=== PATIENT | female | born 1990 | race Caucasian/White ===

== ENCOUNTER 2019-10-30 13:34 | Emergency (ER) | payer OTHER ==
[~2019-10-30] VITALS: Ht 167.6 cm; Wt 59.1 kg
[2019-10-30 14:34] LABS: U PREG PATIENT NEGATIVE (NEG)
[2019-10-30 14:37] LABS: BILIRUBIN,URINE NEG (NEG); CLARITY,URINE HAZY; COLOR,URINE STRAW; GLUCOSE,URINE NEG (NEG); NITRITE,URINE NEG (NEG); RBC,URINE 0 /HPF (0-2); UROBILINOGEN,URINE 0.2 mg/dL (0.2 mg/dL)
[2019-10-30 14:38] LABS: BACTERIA,URINE MOD /HPF (0-FEW); SQUAMOUS EPITHELIAL CELL,UR MANY /LPF
[2019-10-30 14:48] LABS: CALCIUM 9.1 mg/dL (8.5-10.1); CREATININE 0.8 mg/dL (0.6-1.0); GFR 84.2; POTASSIUM 4.3 mmol/L (3.5-5.1)
[2019-10-30 14:54] LABS: ALBUMIN 3.9 g/dL (3.4-5.0); ALBUMIN/GLOBULIN RATIO 1.1 (1.0-1.7); TOTAL BILIRUBIN 0.4 mg/dL (0.2-1.0); TOTAL PROTEIN 7.3 g/dL (6.4-8.2)
[2019-10-30 14:58] LABS: BASO % 0 % (0-3); EOS # 0.2 x10^3/uL (0.0-0.7); EOS % 3 % (0-3); HEMATOCRIT 36.4 % (36.0-47.0); HEMOGLOBIN 12.1 g/dL (12.0-15.5); LYMPH # 2.9 x10^3/uL (1.0-4.8); LYMPH % 38 % (24-48); MEAN CORPUSCULAR HEMOGLOBIN 31 pg (25-35); MEAN CORPUSCULAR HGB CONC 33 g/dL (31-37); MEAN CORPUSCULAR VOLUME 92 fL (79-100); MONO # 0.6 x10^3/uL (0.0-1.1); MONO % 8 % (0-9); NEUT % 51 % (31-73); PLATELET COUNT 216 x10^3/uL (140-400); RED BLOOD COUNT 3.95 x10^6/uL (3.50-5.40); RED CELL DISTRIBUTION WIDTH 14.1 % (11.5-14.5); WHITE BLOOD COUNT 7.8 x10^3/uL (4.0-11.0)
--- NOTE | 2019-10-30 16:03 | RAD ---
Complete abdomen ultrasound HISTORY: Right upper quadrant abdominal pain. COMPARISON: CT abdomen August 16, 2015. FINDINGS: Pancreas, upper abdominal aorta and IVC are normal. Normal liver echogenicity. No liver mass or nodularity documented. Hepatopedal portal vein blood flow. No gallstones or inflammatory changes of the gallbladder. No biliary ductal dilation the common bile duct diameter is 2 mm. Right renal length 10.4 cm . Left renal length 10.9 cm. No renal mass, calculus or hydronephrosis documented. Spleen length 9.0 cm. IMPRESSION: Normal exam. Electronically signed by: Ignacio Rodriguez MD (10/30/2019 4:01 PM) [id number]
[2019-10-30] MEDS ORDERED: KETOROLAC 15 MG/ML VIAL. IVP ONE (16:30)
--- NOTE | 2019-10-30 16:31 | PHYS DOC ---
Past History Past Medical History: No Pertinent History Past Surgical History: Tubal ligation Alcohol Use: Occasionally Drug Use: None General Adult EDM: Chief Complaint: BACK PAIN OR INJURY HPI: HPI: 29-year-old female with past medical history significant for tobacco dependence and tubal ligation 2016, presents the ED with complaints of right upper quadrant nonradiating, burning, abdominal pain pain for the past 2 days with associated right mid thoracic back pain, no trauma or increased physical activity. Patient reports she has not taken anything for the pain. Denies any alcohol or drug use. Last menstrual period was from October 07 through the . States she had a UTI in November 2018 and pyelonephritis when she was a kid. States the pain she experienced with pyelonephritis was much worse than what she is currently experiencing. Review of Systems: Review of Systems: Constitutional: Denies fever or chills Eyes: Denies change in visual acuity HENT: Denies nasal congestion or sore throat Respiratory: Denies cough or shortness of breath Cardiovascular: Denies chest pain or edema GI: Denies abdominal pain, nausea, vomiting, bloody stools or diarrhea : Denies dysuria, materia, radiculopathy Musculoskeletal: Denies back pain or joint pain Integument: Denies rash Neurologic: Denies headache, focal weakness or sensory changes Endocrine: Denies polyuria or polydipsia Lymphatic: Denies swollen glands Psychiatric: Denies depression or anxiety [employer] COURT REPORTER: No vaginal bleeding, abnormal vaginal discharge or odor, dyspareunia Heart Score: Risk Factors: Risk Factors: DM, Current or recent (<one month) smoker, HTN, HLP, family history of CAD, obesity. Risk Scores: Score 0 - 3: 2.5% MACE over next 6 weeks - Discharge Home Score 4 - 6: 20.3% MACE over next 6 weeks - Admit for Clinical Observation Score 7 - 10: 72.7% MACE over next 6 weeks - Early Invasive Strategies Allergies: Allergies: Allergies Coded Allergies Type Severity Reaction Last Updated Verified No Known Drug Allergies 10/05/14 No Physical Exam: PE: Constitutional: Well developed, well nourished, no acute distress, non-toxic ap pearance. [] HENT: Normocephalic, atraumatic, Eyes: EOMI, conjunctiva normal, no discharge. [] Neck: Normal range of motion, supple, Cardiovascular:Heart rate regular rhythm, no murmur [] Lungs & Thorax: Bilateral breath sounds clear to auscultation [] Abdomen: Bowel sounds normal, soft, cannot worsen pain, no murphys signs, pain is over right anterior lower ribs, midaxillary thoracic and posterior ribs, no epigastric ttp, no McBurney sign no Rovsing sign, no masses, no pulsatile masses. [] Skin: Warm, dry, no erythema, no rash. [] Back: No tenderness, no CVA tenderness. [] Extremities: No tenderness, no cyanosis, no clubbing, ROM intact, no edema. [] Neurologic: Alert and oriented X 3, normal motor function, normal sensory function, no focal deficits noted. [] Psychologic: Affect normal, judgement normal, mood normal. [] Current Patient Data: Labs: Laboratory Tests Test 10/30/19 13:40 10/30/19 14:23 Urine Collection Type Unknown Urine Color Straw Urine Clarity Hazy Urine pH 5.5 Urine Specific Hutto >=1.030 Urine Protein Neg (NEG-TRACE) Urine Glucose (UA) Neg mg/dL (NEG) Urine Ketones (Stick) Neg mg/dL (NEG) Urine Blood Neg (NEG) Urine Nitrite Neg (NEG) Urine Bilirubin Neg (NEG) Urine Urobilinogen Dipstick 0.2 mg/dL (0.2 mg/dL) Urine Leukocyte Esterase Trace (NEG) Urine RBC 0 /HPF (0-2) Urine WBC 11-20 /HPF (0-4) Urine Squamous Epithelial Cells Many /LPF Urine Bacteria Mod /HPF (0-FEW) Urine Test Negative (NEG) White Blood Count 7.8 x10^3/uL (4.0-11.0) Red Blood Count 3.95 x10^6/uL (3.50-5.40) Hemoglobin 12.1 g/dL (12.0-15.5) Hematocrit 36.4 % (36.0-47.0) Mean Corpuscular Volume 92 fL (79-100) Mean Corpuscular Hemoglobin 31 pg (25-35) Mean Corpuscular Hemoglobin Concent 33 g/dL (31-37) Red Cell Distribution Width 14.1 % (11.5-14.5) Platelet Count 216 x10^3/uL (140-400) Neutrophils (%) (Auto) 51 % (31-73) Lymphocytes (%) (Auto) 38 % (24-48) Monocytes (%) (Auto) 8 % (0-9) Eosinophils (%) (Auto) 3 % (0-3) Basophils (%) (Auto) 0 % (0-3) Neutrophils # (Auto) 4.0 x10^3uL (1.8-7.7) Lymphocytes # (Auto) 2.9 x10^3/uL (1.0-4.8) Monocytes # (Auto) 0.6 x10^3/uL (0.0-1.1) Eosinophils # (Auto) 0.2 x10^3/uL (0.0-0.7) Basophils # (Auto) 0.0 x10^3/uL (0.0-0.2) Sodium Level 140 mmol/L (136-145) Potassium Level 4.3 mmol/L (3.5-5.1) Chloride Level 106 mmol/L (98-107) Carbon Dioxide Level 26 mmol/L (21-32) Anion Gap 8 (6-14) Blood Urea Nitrogen 11 mg/dL (7-20) Creatinine 0.8 mg/dL (0.6-1.0) Estimated GFR (Cockcroft-Gault) 84.2 BUN/Creatinine Ratio 14 (6-20) Glucose Level 93 mg/dL (70-99) Calcium Level 9.1 mg/dL (8.5-10.1) Total Bilirubin 0.4 mg/dL (0.2-1.0) Aspartate Amino Transferase (AST) 16 U/L (15-37) Alanine Aminotransferase (ALT) 22 U/L (14-59) Alkaline Phosphatase 62 U/L (46-116) Total Protein 7.3 g/dL (6.4-8.2) Albumin 3.9 g/dL (3.4-5.0) Albumin/Globulin Ratio 1.1 (1.0-1.7) Lipase 60 U/L (73-393) L Vital Signs: Vital Signs Date Time Temp Pulse Resp B/P (MAP) Pulse Ox O2 Delivery O2 Flow Rate FiO2 10/30/19 13:35 98.6 80 16 131/78 (95) 98 Room Air EKG: EKG: [] Radiology/Procedures: Radiology/Procedures: []IMAGING REPORT Signed PATIENT: HOMER KING ACCOUNT: [id number] : 1990 LOCATION: ER AGE: 29 SEX: F EXAM STATUS: REG ER ORD. PHYSICIAN: VIVEK BALBUENA DO REASON: ruq abd pain PROCEDURE: ABDOMEN COMPLETE Complete abdomen ultrasound HISTORY: Right upper quadrant abdominal pain. COMPARISON: CT abdomen August 16, 2015. FINDINGS: Pancreas, upper abdominal aorta and IVC are normal. Normal liver echogenicity. No liver mass or nodularity documented. Hepatopedal portal vein blood flow. No gallstones or inflammatory changes of the gallbladder. No biliary ductal dilation the common bile duct diameter is 2 mm. Right renal length 10.4 cm . Left renal length 10.9 cm. No renal mass, calculus or hydronephrosis documented. Spleen length 9.0 cm. IMPRESSION: Normal exam. Electronically signed by: Alena Rodriguez MD (10/30/2019 4:01 PM) [id number] DICTATED AND SIGNED BY: ALENA RODRIGUEZ MD DATE: 10/30/19 1601 CC: VIVEK STRICKLAND; VIVEK BALBUENA DO ~ Course & Med Decision Making: Course & Med Decision Making Pertinent Labs and Imaging studies reviewed. (See chart for details) Patient very, well-appearing in ED, slightly anxious regarding her pain that cannot be reproduced with a physical exam. Due to patient a CT abdomen pelvis in 2015 with no radiopaque colliculi. Ultrasound imaging shows no evidence of biliary disease, cholelithiasis or hydronephrosis. Labs including lipase are unremarkable. Patient's urinalysis is contaminated but will cover for urinary tract infection. Patient states her pain is mild and tolerable with Toradol. I did offer CT abdomen pelvis but patient states she would prefer to be discharged home and states the pain is not that bad. Could be ascending uti. No pelvic pain. Strict ED return precautions were given for severe abdominal or pelvic pain. Encouraged urgent outpatient follow-up with PMD. Life-threatening processes were considered but are low suspicion at this time, given history and physical exam. Pt was educated on all prescription medications and adverse effects. All patient's questions were answered and pt was stable at time of discharge. Differential includes aortic dissection, aortic aneurysm, acute coronary syndrome, surgical abdomen (appendicitis, cholecystitis, ischemic bowel, magalis ulated hernia, etc), bowel obstruction or volvulus, bladder outlet obstruction, gastrointestinal bleeding, inflammatory bowel disease, peptic ulcer disease, sepsis, diverticular disease, ureterolithiasis, nephrolithiasis, ovarian or testicular torsion, ectopic , vaginal hemorrhage of infection I spoken with the patient and her caregivers. I explained the patient's condi tion, diagnoses and treatment plan based on the information available to me at this time. I have answered the patient and her caregiver's questions and addressed any concerns. The patient and her caregivers have a good understanding of patient's diagnosis, condition and treatment plan as can be expected at this point. Vital signs have been stable. Patient's condition is stable and appropriate for discharge from the emergency department. Patient will pursue further outpatient evaluation with primary care physician or other designated or consulting physician as outlined in the discharge instructions. The patient and/or caregivers are agreeable to this plan of care and follow-up instructions have been explained in detail. The patient and/or caregivers have received these instructions in written form and have expressed an understanding of the discharge instructions. The patient and/or caregivers are aware that any significant change of condition or worsening of symptoms should prompt immediate return to this or the closest emergency department or call to 911. Deisi Disclaimer: Deisi Disclaimer: This electronic medical record was generated, in whole or in part, using a voice recognition dictation system. Departure Departure: Impression: Primary Impression: Abdominal pain Additional Impression: UTI (urinary tract infection) Disposition: HOME/RESIDENCE PRIOR TO ADM Condition: STABLE Referrals: VIVEK STRICKLAND (PCP) Patient Instructions: Abdominal Pain, Dysuria Scripts Phenazopyridine Hcl (PHENAZOPYRIDINE HCL) 200 Mg Tablet 1 TAB PO TID for urinary discomfort for 2 Days, #6 TAB 0 Refills after food Prov: VIVEK BALBUENA DO 10/30/19 Nitrofurantoin Monohyd/M-Cryst (MACROBID 100 MG CAPSULE) 100 Mg Capsule 1 CAP PO BID for uti for 7 Days, #14 CAP 0 Refills Prov: VIVEK BALBUENA DO 10/30/19 Justification of Admission: Justification of Admission: Justification of Admission Dx: N/A VIVEK BALBUENA DO Oct 30, 2019 16:31
[2019-10-30 16:44] VITALS: BP 126/79
[2019-10-30] MEDS ORDERED: IOHEXOL 300 MG/ML 75 ML VIAL. IV ONE (16:45)
[2019-10-30] MEDS ORDERED: KETOROLAC 15 MG/ML VIAL. IM ONE (17:00)
[2019-10-30] MEDS ORDERED: PHEN-444 PO (17:09)
[2019-10-30] MEDS ORDERED: NITR100C62 PO (17:09)
== END 2019-10-30 17:12 | disposition home or self-care (01) ==
LOC: ER 13:34
DX: N39.0 Urinary tract infection, site not specified (principal); Z72.0 Tobacco use; Z98.51 Tubal ligation status
CPT/HCPCS: 36415; 76700; 80053; 81001; 81025; 83690; 85025; 87086; 96372; 99285; J1885

== ENCOUNTER → 2019-11-07 | Outpatient (CLI) | payer OTHER ==
[2019-10-30 16:44] VITALS: BP 126/79
[~2019-11-07] MED LIST: NITR100C62 PO; PHEN-444 PO
--- NOTE | 2019-11-07 15:14 | RAD ---
Study: CR LUMBAR SPINE MIN 4V Indication: Low back pain. Comparison: CT abdomen/pelvis 08/16/2015 Findings: 5 nonrib-bearing lumbar vertebral elements. Straightening of lumbar lordosis. There appears to be mild to potentially moderate disc space narrowing at L5-S1 and trace retrolisthesis of L5 on S1. Vertebral body height is maintained. No pars defect identified on the oblique views. Grossly intact transverse and spinous processes. No advanced facet degeneration. Unremarkable sacrum. Scattered pelvic phleboliths. Impression: Mild to potentially moderate disc space narrowing at L5-S1 and trace retrolisthesis of L5 on S1. Disc space height elsewhere is within normal limits. No readily apparent advanced facet degeneration. Electronically signed by: EDE ARIAS MD (11/07/2019 3:11 PM) [id number]
== END | disposition home or self-care (01) ==
LOC: PMG 11:33
PROVIDERS: ATTEND Physician Assistant Medical
DX: M48.07 Spinal stenosis, lumbosacral region (principal)
CPT/HCPCS: 72110

== ENCOUNTER → 2020-12-05 | Outpatient (CLI) | payer OTHER ==
--- NOTE | 2020-12-05 16:47 | RAD ---
EXAM: LUMBAR SPINE 3 VIEWS. HISTORY: Low back pain, lumbar surgery COMPARISON: None. FINDINGS: There is a mild lumbar levocurvature, within normal limits. Vertebral body heights are main tained, and no fractures are identified. Intervertebral disc heights are maintained. IMPRESSION: 1. No fracture or clear degenerative change. Electronically signed by: Palak Frye MD (12/05/2020 4:44 PM) [id number]
== END ==
LOC: RAD 10:49
PROVIDERS: ATTEND Nurse Practitioner Adult Health
DX: M54.50 Low back pain, unspecified (principal)
CPT/HCPCS: 72100

== ENCOUNTER → 2020-12-20 | Outpatient (CLI) | payer OTHER ==
--- NOTE | 2020-12-20 10:00 | RAD ---
EXAM: Lumbar spine, flexion and extension; lumbar spine, lateral view. HISTORY: Pain COMPARISON: 12/05/2020. FINDINGS: Lateral neutral, flexion and extension views lumbar spine are obtained. There is minimal re trolisthesis of L5 on S1 which does not change between flexion and extension. No abnormal motion is s een. There is disc space narrowing and facet arthropathy at the lumbosacral junction. No fracture is seen. IMPRESSION: 1. Mild disc space narrowing, facet arthropathy and retrolisthesis at the lumbosacral junction. 2. No acute osseous finding or abnormal motion between flexion and extension. Electronically signed by: Carmen Roa MD (12/20/2020 9:57 AM) [id number]
== END ==
LOC: RAD 09:23
PROVIDERS: ATTEND Neurological Surgery
DX: M47.817 Spondylosis without myelopathy or radiculopathy, lumbosacral region (principal); M48.07 Spinal stenosis, lumbosacral region; M54.50 Low back pain, unspecified; M43.10 Spondylolisthesis, site unspecified
CPT/HCPCS: 72020; 72100

== ENCOUNTER 2021-03-10 01:44 | Emergency (ER) | payer OTHER ==
[~2021-03-10] VITALS: Ht 167.6 cm; Wt 59.1 kg
[2021-03-10 01:58] VITALS: BP 128/86
--- NOTE | 2021-03-10 02:28 | PHYS DOC ---
Past History Past Medical History Limited secondary to alcohol intoxication Past Surgical History: Tubal ligation, Other Past Surgical History Limited secondary to alcohol intoxication Alcohol Use: Occasionally Drug Use: None Social History Limited secondary to alcohol intoxication General Adult EDM: Chief Complaint: ALCOHOL INTOXICATION HPI: HPI: 30-year-old female presents via EMS with report of alcohol intoxication. EMS reports they were called by patient's friends at the bar secondary to patient being significantly intoxicated. History of present illness limited secondary to alcohol intoxication. Review of Systems: Review of Systems: Constitutional: Denies fever or chills GI: Denies abdominal pain, nausea, or vomiting Integument: Denies rash Neurologic: Denies headache Review of systems limited secondary to alcohol intoxication Allergies: Allergies: Allergies Coded Allergies Type Severity Reaction Last Updated Verified No Known Drug Allergies 10/05/14 No Physical Exam: PE: Constitutional: Well developed, well nourished, no acute distress, non-toxic appearance HENT: Normocephalic, atraumatic Eyes: PERRL, EOMI, conjunctiva mildly injected, no discharge, horizontal nystagmus noted Neck: Normal range of motion, no tenderness, supple Lungs & Thorax: No respiratory distress, equal chest rise and fall Abdomen: Soft, no tenderness Skin: Warm, dry, no erythema, no rash Extremities: No tenderness, ROM intact, no edema Neurologic: Alert and oriented X 3, no focal deficits noted, walks with steady gait Psychologic: Intoxicated, judgment abnormal Current Patient Data: Vital Signs: Vital Signs Date Time Temp Pulse Resp B/P (MAP) Pulse Ox O2 Delivery O2 Flow Rate FiO2 03/10/21 01:58 97.6 103 18 128/86 (100) 100 Room Air EKG: EKG: [] Radiology/Procedures: Radiology/Procedures: [] Heart Score: C/O Chest Pain: N/A Course & Med Decision Making: Course & Med Decision Making Patient presents via EMS with report of alcohol intoxication. Upon arrival patient does appear intoxicated however is A&O x3. Patient is able to ambulate with a steady gait. Patient's spouse called and requested to bring patient home. Patient currently appears clinically sober and can be discharged safely home under evaluation of spouse. Patient stable for discharge with outpatient follow-up with PCP. Discussed findings and plan with patient, who acknowledges understanding and agreement. Deisi Disclaimer: Deisi Disclaimer: This electronic medical record was generated, in whole or in part, using a voice recognition dictation system. Departure Departure: Impression: Primary Impression: Alcohol intoxication Qualified Codes: F10.920 - Alcohol use, unspecified with intoxication, uncomplicated Disposition: 01 HOME / SELF CARE / HOMELESS Condition: STABLE Referrals: VIVEK STRICKLAND (PCP) Patient Instructions: Alcohol Intoxication, [id number] HENNY WOODWARD DO Mar 10, 2021 02:28
== END 2021-03-10 02:40 | disposition home or self-care (01) ==
LOC: ER 01:44
DX: F10.229 Alcohol dependence with intoxication, unspecified (principal); Y90.9 Presence of alcohol in blood, level not specified
CPT/HCPCS: 99283

== ENCOUNTER 2021-07-20 16:02 | Emergency (ER) | payer OTHER ==
[~2021-07-20] VITALS: Ht 167.6 cm; Wt 61.9 kg
[2021-07-20] MEDS ORDERED: IV NORMAL SALINE 1,000ML 1,000 ML IV ONE ×2 (16:30→17:45)
[2021-07-20] MEDS ORDERED: diphenhydrAMINE 50 MG/ML VIAL IVP ONE (16:30)
[2021-07-20] MEDS ORDERED: PROCHLORPERAZINE 10 MG/2 ML VIAL. IV ONE (16:30)
--- NOTE | 2021-07-20 16:40 | PHYS DOC ---
Past History Past Surgical History: Tubal ligation, Other Additional Past Surgical Histo: LUMBAR (KIRILL ESTES MD) Additional Smoking Information: VAPES Alcohol Use: Occasionally Drug Use: None (KIRILL ESTES MD) General Adult EDM: Chief Complaint: POST-OP PROBLEM HPI: HPI: Patient is a 31-year-old female coming in for headache for the past 2 days. Patient states that she was seen by neurosurgeon and had a myelogram 2 days ago. Patient states that the headache started in the left side of her neck and the back of her head. Patient notes that she has had some nausea and vomited 1 time just prior to arrival. Also endorsing photophobia. Denies any fevers or chills. Patient states she spoke with a nurse from the neurosurgeons office yesterday and was told to hydrate. Story of migraine (KIRILL ESTES MD) Review of Systems: Review of Systems: All other systems within normal limits except for as noted in the HPI (KIRILL ESTES MD) Allergies: Allergies: Allergies Coded Allergies Type Severity Reaction Last Updated Verified No Known Drug Allergies 10/05/14 No (KIRILL ESTES MD) Physical Exam: PE: Constitutional: Well developed, well nourished, no acute distress, non-toxic appearance. [] HENT: Normocephalic, atraumatic, bilateral external ears normal, nose normal. [] Eyes: PERRLA, conjunctiva normal, no discharge. [] Neck: No rigidity, supple, no stridor. posterior neck pain[] Cardiovascular: Regular rate and rhythm, brisk cap refill [] Lungs & Thorax: Non labored symmetric respirations, no tachypnea or respiratory distress [] Abdomen: Soft, nondistended. Skin: Warm, dry, no erythema, no rash. [] Back: Unremarkable, 2 Band-Aids over lumbar spine, no surrounding erythema. Extremities: No deformities, range of motion grossly intact, no lower extremity edema [] Neurologic: Alert and oriented X 3, no focal deficits noted. [] Psychologic: Affect normal, judgement normal, mood normal. [] (KIRILL ESTES MD) Current Patient Data: Vital Signs: Vital Signs Date Time Temp Pulse Resp B/P (MAP) Pulse Ox O2 Delivery O2 Flow Rate FiO2 5/28/22 16:10 97.5 90 20 119/65 (83) 98 Room Air (KIRILL ESTES MD) EKG: EKG: [] (KIRILL ESTES MD) Radiology/Procedures: Radiology/Procedures: [] (KIRILL ESTES MD) Heart Score: C/O Chest Pain: No Risk Factors: Risk Factors: DM, Current or recent (<one month) smoker, HTN, HLP, family history of CAD, obesity. Risk Scores: Score 0 - 3: 2.5% MACE over next 6 weeks - Discharge Home Score 4 - 6: 20.3% MACE over next 6 weeks - Admit for Clinical Observation Score 7 - 10: 72.7% MACE over next 6 weeks - Early Invasive Strategies (KIRILL ESTES MD) Course & Med Decision Making: Course & Med Decision Making Pertinent Labs and Imaging studies reviewed. (See chart for details) Consult placed to Dr. Parker's nurse practitioner Caitlyn. She states she talked to the patient yesterday and advised her to rest. She is not concerned the patient symptoms about meningitis or encephalitis is not requesting any lumbar puncture. Caitlyn is concerned about the loss of spinal fluid due to having 2 punctures and is recommending post LP headache treatment with reev aluation. May possibly have to send to [place] if symptoms not resolved for a blood patch by anesthesia. At this facility would only have 60 mg total of IV caffeine, will add that to the saline bag for the migraine cocktail. Patient pending medications and reevaluation at shift change. [] (KIRILL ESTES MD) Course & Med Decision Making Patient care handed off to me at checkout pending reevaluation. On reevaluation, patient awake alert and oriented no acute distress with resolution of symptoms wanting to go home. Discussed findings with patient. Advised to follow-up with her primary care physician and neurosurgeon soon as she can update on ED visit and set up appropriate follow-ups as needed. Gave return precautions to the ED. Family grateful, verbalized understanding and agreed with plan of discharge. (TANIKA CAPPS MD) Dragon Disclaimer: Dragon Disclaimer: This electronic medical record was generated, in whole or in part, using a voice recognition dictation system. (KIRILL ESTES MD) Departure Departure: Impression: Primary Impression: Headache Disposition: HOME / SELF CARE / HOMELESS Condition: STABLE Referrals: VIVEK STRICKLAND (PCP) Patient Instructions: Lumbar Laminectomy, Care After, Migraine Headache Additional Instructions: Thank you for coming into the emergency department tonight and allowing us to take care of you. Please read the attached information carefully to go over things we discussed. Please continue to stay well-hydrated and use Tylenol, ibuprofen and Benadryl at home. Please follow-up with your primary care physician and your neurosurgeon as soon as you can to update on your ED visit. Please come back with new or concerning symptoms as discussed. KIRILL ESTES MD July 20, 2021 16:40 TANIKA CAPPS MD July 20, 2021 19:10
[2021-07-20 17:20] LABS: CLARITY,URINE CLOUDY; COLOR,URINE BROWN; GLUCOSE,URINE NEG (NEG)
[2021-07-20 17:21] LABS: BACTERIA,URINE MOD /HPF (0-FEW); NITRITE,URINE NEG (NEG); RBC,URINE TNTC /HPF (0-2); SQUAMOUS EPITHELIAL CELL,UR MANY /LPF; UROBILINOGEN,URINE 0.2 mg/dL (0.2 mg/dL)
[2021-07-20] MEDS ORDERED: CAFFEINE CITRATED 60 MG/3 ML IV ONE (17:30)
[2021-07-20 17:37] LABS: CREATININE 0.7 mg/dL (0.6-1.0); POTASSIUM 3.5 mmol/L (3.5-5.1)
[2021-07-20 17:39] LABS: BASO % 0 % (0-3); EOS # 0.1 x10^3/uL (0.0-0.7); EOS % 1 % (0-3); HEMATOCRIT 36.8 % (36.0-47.0); HEMOGLOBIN 12.7 g/dL (12.0-15.5); LYMPH # 1.7 x10^3/uL (1.0-4.8); LYMPH % 22 % (24-48); MEAN CORPUSCULAR HEMOGLOBIN 32 pg (25-35); MEAN CORPUSCULAR HGB CONC 35 g/dL (31-37); MEAN CORPUSCULAR VOLUME 92 fL (79-100); MONO # 0.4 x10^3/uL (0.0-1.1); MONO % 6 % (0-9); NEUT # 5.4 x10^3uL (1.8-7.7); NEUT % 71 % (31-73); PLATELET COUNT 234 x10^3/uL (140-400); RED BLOOD COUNT 4.01 x10^6/uL (3.50-5.40); RED CELL DISTRIBUTION WIDTH 12.6 % (11.5-14.5); WHITE BLOOD COUNT 7.5 x10^3/uL (4.0-11.0)
[2021-07-20 17:43] LABS: ALBUMIN 4.1 g/dL (3.4-5.0); ALBUMIN/GLOBULIN RATIO 1.2 (1.0-1.7); MAGNESIUM 1.9 mg/dL (1.8-2.4); TOTAL BILIRUBIN 0.7 mg/dL (0.2-1.0); TOTAL PROTEIN 7.6 g/dL (6.4-8.2)
[2021-07-20] MEDS ORDERED: IV NORMAL SALINE 500ML 500 ML IV ONE (17:45)
--- NOTE | 2021-07-20 18:28 | RAD ---
CT HEAD AND C-SPINE WO History: Left headache, post myelogram. Comparison: None. Technique: Noncontrast CT of the head and cervical spine. Findings: CT HEAD: There is no evidence for intracranial mass or hemorrhage. There is no hydrocephalus or midline shift. No abnormal extra-axial fluid collections are present. There is increased attenuation of the CSF whic h is related to recent myelogram. No evidence of acute territorial infarction. The visualized paranasal sinuses and mastoid air cells are clear. The skull and scalp are within normal limits. CT CERVICAL SPINE: There is no evidence for fracture in the cervical spine. Alignment is normal. Disc spaces are preserved. Increased attenuation of the CSF consistent with recent myelogram. No destructive osseous lesions are seen. Dental disease with cavity and periapical lucency at right mandibular molar. The upper lungs and soft tissues the neck are unremarkable. Impression: 1. No acute intracranial findings. 2. No acute osseous abnormality in the cervical spine. 3. Right mandibular molar dental disease incompletely visualized with cavity and periapical lucency. ------- Exposure: One or more of the following individualized dose reduction techniques were utilized for thi s examination: 1. Automated exposure control 2. Adjustment of the mA and/or kV according to patient size 3. Use of iterative reconstruction technique. Electronically signed by: He James MD (07/20/2021 6:26 PM) [id number]
[2021-07-20 18:52] VITALS: BP 112/57
[2021-07-20] MEDS ORDERED: oxyCODONE/APAP 5/325 1 TAB TABLET PO ONE (19:15)
== END 2021-07-20 19:22 | disposition home or self-care (01) ==
LOC: ER 16:02
DX: R51.9 Headache, unspecified (principal); R11.2 Nausea with vomiting, unspecified; H53.143 Visual discomfort, bilateral; F17.200 Nicotine dependence, unspecified, uncomplicated
CPT/HCPCS: 36415; 70450; 72125; 80053; 81001; 81025; 83735; 85025; 87040; 87086; 96361; 96374; 96375; 99284; J0706; J0780; J1200; J7030; J7040